=== PATIENT | male | born 1995 | race Caucasian/White ===

== ENCOUNTER 2016-06-22 19:45 | Emergency (ER) | payer OTHER ==
[~2016-06-22] VITALS: Ht 172.7 cm; Wt 104.3 kg
[2016-06-22 20:20] VITALS: BP 150/90
--- NOTE | 2016-06-22 22:57 | NUR ---
Patient to bed 08.
--- NOTE | 2016-06-22 23:03 | NUR ---
20Y M PRESENTED IN ER C/O OF CHEST PAIN TO MIDSTERNAL AREA. PAIN 7/10 IN SCALE AND DESCRIBED SHARP OR STABBING PAIN WHICH GET WORST WHEN HE BREATHS IN. DENIES N/V/D.
--- NOTE | 2016-06-22 23:07 | NUR ---
Dr. Farias evaluating patient at bedside.
[2016-06-22] MEDS ORDERED: KETOROLAC 60 MG/2 ML VIAL IM ONE (23:10)
[2016-06-22 23:58] VITALS: BP 148/91
== END 2016-06-22 23:59 | disposition home or self-care (01) ==
LOC: MED 19:45
DX: M94.0 Chondrocostal junction syndrome [Tietze] (principal); R03.0 Elevated blood-pressure reading, without diagnosis of hypertension; F17.210 Nicotine dependence, cigarettes, uncomplicated; Z71.6 Tobacco abuse counseling
CPT/HCPCS: 71010; 93005; 96372; 99284; J1885; J7030